=== PATIENT | female | born 1960 | race Caucasian/White ===

== ENCOUNTER 2021-09-09 06:24 | Observation (INO) | payer OTHER ==
[2021-09-09] MEDS ORDERED: Sodium Chloride 0.9% 10 ML Syringe FLUSH PRN (06:31)
[2021-09-09] MEDS ORDERED: Sodium Chloride 0.9% 1,000 ML IV ONE (06:37)
[2021-09-09] MEDS ORDERED: Ondansetron 4 MG/2 ML SDV IVPUSH ONE (06:37)
[2021-09-09] MEDS ORDERED: Diltiazem 25 MG/5 ML SDV IVPUSH ONE ×3 (06:37→10:35)
[2021-09-09 06:52] LABS: ANION GAP 15.7 mmol/L (5-15)
[2021-09-09] MEDS ORDERED: Metoprolol Tartrate 25 MG Tab PO SCH (09:00)
[2021-09-09] MEDS ORDERED: Diltiazem 125 MG in Sodium Chloride 0.9% 100 ML IV SCH (10:30)
[2021-09-09] MEDS ORDERED: Acetaminophen 500 MG Tab PO PRN (13:59)
[2021-09-09] MEDS ORDERED: Levothyroxine 100 MCG Tab PO SCH ×2 (14:00→14:01)
[2021-09-09] MEDS: Omeprazole 20 MG Cap.CR PO SCH (17:29)
[2021-09-09] MEDS: Metoprolol Tartrate 50 MG Tab PO SCH (20:45)
[2021-09-09] MEDS: Apixaban 5 MG Tab PO SCH (20:45)
[2021-09-09] MEDS: Famotidine 20 MG Tab PO SCH (20:45)
[2021-09-09] MEDS ORDERED: atorvaSTATin 10 MG Tab PO SCH (21:00)
[2021-09-10] MEDS: Omeprazole 20 MG Cap.CR PO SCH (06:32)
[2021-09-10] MEDS ORDERED: Levothyroxine 112 MCG Tab PO SCH (07:30)
[2021-09-10] MEDS: Apixaban 5 MG Tab PO SCH (08:00)
[2021-09-10] MEDS: Metoprolol Tartrate 50 MG Tab PO SCH (08:00)
[2021-09-10] MEDS: Famotidine 20 MG Tab PO SCH (08:00)
[2021-09-10 09:04] VITALS: BP 127/77; PULSE 60
== END 2021-09-10 10:30 | disposition home or self-care (01) ==
LOC: KA.ED 06:24 → KA.MS 08:45
PROVIDERS: ADMIT Family Medicine; ATTEND Family Medicine
DX: I48.0 Paroxysmal atrial fibrillation (principal); E78.00 Pure hypercholesterolemia, unspecified; I10 Essential (primary) hypertension; E03.9 Hypothyroidism, unspecified; E78.5 Hyperlipidemia, unspecified; M79.7 Fibromyalgia; G56.01 Carpal tunnel syndrome, right upper limb; Z87.19 Personal history of other diseases of the digestive system; Z20.822 Contact with and (suspected) exposure to COVID-19; Z88.8 Allergy status to other drugs, medicaments and biological substances; Z79.899 Other long term (current) drug therapy; Z98.890 Other specified postprocedural states; Z79.890 Hormone replacement therapy
CPT/HCPCS: 36415; 71045; 80053; 83735; 83880; 84443; 84484; 85025; 93005; 93010; 96361; 96365; 96366; 96374; 96375; 96376; 99284; 99285-25; A9270-GY; G0378; J2405; J3490; J7030; U0002

== ENCOUNTER 2021-09-25 17:34 | Emergency (ER) | payer OTHER ==
[2021-09-25] MEDS ORDERED: Sodium Chloride 0.9% 10 ML Syringe FLUSH PRN (17:57)
[2021-09-25] MEDS ORDERED: Diltiazem 25 MG/5 ML SDV IVPUSH ONE (18:04)
[2021-09-25 18:30] LABS: ANION GAP 14.9 mmol/L (5-15)
== END 2021-09-25 18:54 | disposition home or self-care (01) ==
LOC: KA.ED 17:34
DX: I48.0 Paroxysmal atrial fibrillation (principal); E78.00 Pure hypercholesterolemia, unspecified; I10 Essential (primary) hypertension; E03.9 Hypothyroidism, unspecified; Z88.8 Allergy status to other drugs, medicaments and biological substances; Z79.01 Long term (current) use of anticoagulants; Z79.899 Other long term (current) drug therapy
CPT/HCPCS: 36415; 71045; 80053; 83880; 84484; 85025; 93005; 93010; 96374; 99284; 99285-25; J3490

== ENCOUNTER 2021-11-23 17:13 | Emergency (ER) | payer OTHER ==
[2021-11-23] MEDS ORDERED: LORazepam 2 MG/ML SDV IV ONE (18:08)
[2021-11-23] MEDS ORDERED: Potassium Chloride 20 MEQ Tab.ER PO ONE (19:20)
[2021-12-08 10:48] LABS: SODIUM,NA 134 mmol/L (136-145)
[2021-12-08 10:49] LABS: ANION GAP 7.1 mmol/L (5-15); CHLORIDE,CL 99 mmol/L (98-115); ESTIMATED GFR 102 mL/min (>=60)
== END 2021-11-23 19:30 | disposition home or self-care (01) ==
LOC: KA.ED 17:13
DX: I10 Essential (primary) hypertension (principal); E87.6 Hypokalemia
CPT/HCPCS: 36415; 71046; 80053; 84484; 85025; 93005; 99284; A9270; J2060